=== PATIENT | female | born 1950 | race Caucasian/White ===

== ENCOUNTER → 2020-05-19 12:24 | Outpatient (CLI) | payer MEDICARE, SELFPAY | PROVIDERS: PCP Family Medicine; Visit Provider Family Medicine | DX: B34.9 Viral infection, unspecified (principal) | CPT/HCPCS: 87635; U0003 ==

== ENCOUNTER 2021-01-25 12:25 | Outpatient (RCR) | payer MEDICARE, SELFPAY ==
[2016-05-29 09:06] VITALS: BMI 29.9
== END 2021-01-25 23:59 ==
LOC: IMMUN 12:25
PROVIDERS: PCP Family Medicine; Visit Provider Family Medicine
DX: Z23 Encounter for immunization (principal)
CPT/HCPCS: 0011A; 0012A

== ENCOUNTER 2025-06-02 08:08 | Emergency (ER) | payer MEDICARE, OTHER, SELFPAY ==
[2025-06-02 08:09] VITALS: BP 173/77; PULSE 69; RESP 16; TEMP 36.9; O2SAT 98; BMI 32.1
[2025-06-02 09:00] LABS: Hematocrit 37.7 % (37-47); Hemoglobin 12.6 g/dL (12.0-15.0); Immature Granulocytes Count 0.040 X10^3/uL (0.0-0.0); Mean Corp Hgb Conc 33.4 g/dL (32-36); Mean Corpuscular Volume 91.7 fL (81-99); Mean Platelet Vol. 13.3 fl (6.2-12.0); NRBC Flagged by Analyzer 0 % (0-5); Platelet Count 153 K/mm3 (150-450); RBC Distribution Width CV 13.5 % (11.6-14.6); RBC Distribution Width SD 46.0 fl (35.1-43.9); Red Blood Count 4.11 M/mm3 (4.2-5.4); White Blood Count 6.5 K/mm3 (4.4-11.0)
[2025-06-02 09:01] VITALS: BP 155/74; BP 156/67; BP 160/74; PULSE 62; PULSE 63; PULSE 66
[2025-06-02 09:35] LABS: Anion Gap 11 (5-15); BUN 17 mg/dL (4-19); BUN/Creat Ratio 22.6 RATIO (10-20); Calcium,Total 9.6 mg/dL (7.6-11.0); Carbon Dioxide 26.9 mmol/L (21.0-32.0); Chloride 105 mmol/L (98-108); Estimated Creatinine Clearance 60.34 ml/min (50-250); Glucose 137 mg/dL (70-99); Potassium 3.8 mmol/L (3.3-5.1)
[2025-06-02 10:02] LABS: Red Blood Cells-Urine 0 SEEN /hpf (0-5)
[2025-06-02 10:22] LABS: Color, Urine Yellow (Yellow); Glucose, Dipstick Normal (Normal); Ketone-Dipstick Negative (Negative); Leukocyte Esterase-Dipstick Negative /ul (Negative); Nitrite-Dipstick Negative (Negative); Occult Blood-Urine Negative /ul (Negative); Protein-Dipstick 15 mg/dl (Negative); Specific Gravity, Urine 1.025 (1.002-1.030); Urine Bilirubin Dipstick Negative (Negative)
[2025-06-02 10:46] VITALS: BP 137/68; PULSE 58; RESP 16; O2SAT 97
[2025-06-02 10:54] LABS: Squamous Epithelial Cells - UA 0-5 SEEN /hpf (5-10)
[2025-06-02] MEDS: 0.9% Normal Saline (1000mL) 1,000 ML 1000 ML IV (11:45)
[2025-06-02 12:05] LABS: Troponin T High Sensitivity 11 ng/L (<=14)
[2025-06-02 12:06] VITALS: BP 163/68; PULSE 74; RESP 93; O2SAT 18
[2025-06-02 12:58] VITALS: BP 163/68; PULSE 74; RESP 93; TEMP 36.9; O2SAT 18
== END 2025-06-02 13:04 | disposition home or self-care (01) ==
PROVIDERS: Emergency Provider Surgery; PCP Internal Medicine; Visit Provider Surgery
DX: R55 Syncope and collapse (principal); R42 Dizziness and giddiness; I10 Essential (primary) hypertension; Z79.899 Other long term (current) drug therapy
CPT/HCPCS: 71046; 80048; 81001; 84484; 85025; 93005; 96360; 99285; A4216